=== PATIENT | male | born 2005 | race Caucasian/White ===

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

== ENCOUNTER 2023-03-11 13:58 | Emergency (ER) | payer MEDICAID ==
[~2023-03-11] VITALS: Ht 180.3 cm; Wt 74.6 kg
[2023-03-11 13:59] VITALS: BP 150/80; PULSE 97; RESP 16; TEMP 98; O2SAT 100
[2023-03-11] MEDS ORDERED: NAPR-56 PO (14:59)
== END 2023-03-11 15:35 | disposition home or self-care (01) ==
LOC: ER 13:59
DX: S93.602A Unspecified sprain of left foot, initial encounter (principal); F12.90 Cannabis use, unspecified, uncomplicated; X58.XXXA Exposure to other specified factors, initial encounter; Y93.89 Activity, other specified; Y92.89 Other specified places as the place of occurrence of the external cause; Y99.8 Other external cause status
CPT/HCPCS: 73630; 99283